=== PATIENT | male | born 1965 | race Caucasian/White ===

== ENCOUNTER 2019-02-13 10:23 | Outpatient (CLI) | payer OTHER, SELFPAY ==
--- NOTE | 2019-02-13 10:21 | DI.RAD_ITS ---
SYMPTOM/DIAGNOSIS: SHOULDER PAIN LEFT SHOULDER: There is spurring at the AC joint, particularly inferiorly. There is also some spurring at the greater and lesser tuberosities as well as rim of the glenoid. Glenohumeral joint space is well maintained. The humeral head is normally positioned. No tendon or joint space calcifications are seen. IMPRESSION: Degenerative changes of the AC joint and glenohumeral joint.
== END 2019-02-13 10:43 ==
PROVIDERS: Visit Provider Orthopaedic Surgery
DX: M25.512 Pain in left shoulder (principal); M19.012 Primary osteoarthritis, left shoulder
CPT/HCPCS: 73030

== ENCOUNTER 2022-08-10 23:06 | Emergency (ER) | payer OTHER, SELFPAY ==
[2022-08-10 23:11] VITALS: BP 131/79; PULSE 70; RESP 16; TEMP 36.5; O2SAT 98
--- NOTE | 2022-08-10 23:15 | DI.CT_ITS ---
Exam(s) CT ABDOMEN PELVIS W EXAM: CT ABDOMEN PELVIS W CLINICAL HISTORY: left inguinal hernia, r/o stangulation TECHNIQUE: COMPARISON: No exams were available for comparison FINDINGS: CT examination of the abdomen and pelvis was performed with bolus infusion of 100 cc of Omnipaque 350 . Images obtained through the lung bases are unremarkable. The liver appears normal with no evidence of a focal mass. Spleen is unremarkable in appearance.. Gallbladder and bile ducts areunremarkable. Pancreas is unremarkable in appearance. Adrenals appear normal bilaterally. Kidneys appear normal except for an apparent 4 cm left upper pole renal cyst with no evidence of peterson l mass, hydronephrosis, or nephrolithiasis. Unremarkable bladder. There is no evidence of abdominal or pelvic adenopathy. Abdominal aorta is of normal diameter and no abnormality is seen involving major visceral branches.. Appendix is normal. No evidence diverticulitis or bowel obstruction. There is a large left inguinal hernia which contains portion of the sigmoid colon and associated fat, no evidence of obstruction or strangulation period. Impression: No evidence of acute intra-abdominal process. Large left inguinal hernia containing portion of the sigmoid colon without evidence of complication. RADIATION DOSE DELIVERED: Total DLP Total DLP DATA REPOSITORY: All CT scans at this facility are submitted to the National Radiology Data Registry (NRDR) Dose Index Registry (DIR) with the [employer] (A[employer]). RADIATION OPTIMIZATION: All CT scans at this facility use at least one of these dose optimization te chniques: automated exposure control; mA and/or kV adjustment per patient size (includes targeted exa ms where dose is matched to clinical indication); or iterative reconstruction.
--- NOTE | 2022-08-10 23:22 | ED.GENADUL_ITS ---
Discharge Plan Disposition Patient Disposition: Home Condition: Good Discharge Details Clinical Impression: Left inguinal hernia Primary Care Provider: Unknown,Unknown ED Provider: Danny Newell Home Meds and New Rx's Prescriptions: New docusate sodium [Colace] 100 mg capsule 100 mg PO BID Qty: 120 0RF No Action ibuprofen 200 mg tablet 600 mg PO TID-QID PRN albuterol sulfate 90 mcg/actuation HFA aerosol inhaler 2 puff inhalation Q6H PRN Spiriva with HandiHaler 18 mcg capsule, w/inhalation device 1 cap inhalation DAILY Rx Instructions: puncture 1 cap using device; one dose = 2 inhalations fluticasone propionate [Flovent HFA] 220 mcg/actuation HFA aerosol inhaler 2 puff inhalation BID cetirizine [Allergy Relief (cetirizine)] 10 mg tablet 10 mg PO DAILY PRN levalbuterol tartrate [Xopenex HFA] 45 mcg/actuation HFA aerosol inhaler 2 inh inhalation Q6H atorvastatin 40 mg tablet 40 mg PO DAILY Discharge Instructions Instructions: Inguinal Hernia (ED) Additional Instructions: At this time your hernia is. Do not obstructed. There is no evidence of such strangulation. No signs of dying bowel. You do have some constipation and as this transitions to your hernia this is definitely likely worsening your pain. Please keep your stool soft by drinking plenty of fluids and taking the stool softener Colace that we have prescribed. If you notice any worsening of your symptoms, or any new symptoms such as vomiting, diarrhea, fever, chills, shortness of breath, chest pain, numbness, weakness, or fainting , please return immediately to the emergency department for reevaluation. Please follow up with your primary care provider as soon as possible for reassessment and reevaluation. As always, it was a pleasure participating in your medical care today. Medical Decision Making This is a 56-year-old male with a past medical history of a left inguinal hernia scheduled for surgical repair, COPD, previous OR, high cholesterol, who is currently incarcerated, who presents today for left inguinal/groin pain. Patient states that for the last 2 to 3 days he has had mild to moderate pain in his left inguinal hernia location. He has noticed swelling and a bulge larger than normal in this region, as well as enlargement of his left scrotal sac. He admits to mild burning with urination. He admits to mild tingling over the suprapubic region. He denies any vomiting, diarrhea, fever or chills. He is not able to reduce the swelling. He has worsening of his pain with palpation and bearing down. No other complaints at this time. No other modifying factors. Physical exam demonstrates a bulge and swelling in the left inguinal and scrotal region. Scrotum is slightly reducible but definitely not completely. Notable tenderness in this area, unable to reduce the groin at all. Differential is highest for an incarcerated hernia, with potential less likely strangulation component. Suspect its more of an irritation component causing this however with the increase in size he certainly could be transitioning to a strangulation component. We will get a CT scan, treat the patient's pain, rehydrate, monitor closely and reassess. 2:[address] scan shows a large left inguinal hernia containing herniated fat in the sigmoid colon, tracking down into the left hemiscrotum there is no evidence of associated bowel obstruction or strangulation. There is evidence of constipation. Laboratory work-up shows no white count, bandemia, left shift, lactate is normal. Patient feels well. Symptoms continue to be inconsistent with strangulation. Urinalysis negative. Patient stable. No clinical evidence of strangulation at this time or an acute surgical abdomen. Will give Colace for home use, recommend stool softener with any fluids. Discussed red flags which to return. I have extensively reviewed the treatment plan and discharge instructions with the patient. I have addressed all patient concerns at this time. The patient was made aware of what symptoms to monitor for that would warrant a return to the emergency department. Discussed the plan with the patient, they demonstrate verbal understanding and agreement with our assessment and plan at this time. The documentation in this chart was dictated using [employer] dictation software. Please excuse any dictation errors. FINDINGS: Lungs: Moderate emphysematous changes in the lung bases. Mild-moderate bronchiectasis in the lower lobes. Dependent atelectasis in the lower lobes. Heart: Heart size normal. Mediastinal space: The visualized distal esophagus is largely contracted without gross abnormality. Liver: Normal contour. There is a 4 mm probable cyst in the central liver which does not require further assessment. Slight intrahepatic biliary ductal dilatation. Gallbladder and bile ducts: Normal. No calcified stones. No ductal dilation. Pancreas: Normal. No inflammatory changes or ductal dilation. Spleen: Normal. No splenomegaly. Adrenal glands: Normal. No adrenal mass. Kidneys and ureters: No acute abnormalities. No hydronephrosis or hydroureter. No urinary tract stones are identified. There are bilateral renal cortical lesions demonstrating low density values and circumscribed margins favoring simple renal cysts for which no further imaging evaluation is required. Stomach and bowel: The stomach is unremarkable. The small bowel is nondilated with no gross abnormality. Moderate stool throughout the colon suggesting constipation. The sigmoid colon extends into the left inguinal hernia with no bowel wall thickening to suggest strangulation/ischemia. No evidence of colonic obstruction. Appendix: The appendix is normal in caliber and demonstrates no evidence of appendicitis. Intraperitoneal space: No free fluid or air. Vasculature: Moderate atherosclerotic aortoiliac calcification without aneurysm. Lymph nodes: No adenopathy. Urinary bladder: The urinary bladder is moderately distended but otherwise unremarkable. Reproductive: Unremarkable as visualized. Bones/joints: No acute osseous abnormalities. Moderate disc degenerative changes L5-S1 with 4 mm degenerative retrolisthesis. Soft tissues: Large left inguinal hernia containing herniated fat and vessels as well as a fairly long segment of sigmoid colon, extending off the lower edge of the scan range into the left hemiscrotum. There are no changes of strangulation or bowel obstruction. IMPRESSION: 1. Large left inguinal hernia containing herniated fat, vessels, and sigmoid colon, tracking down into the left hemiscrotum off the lower edge of the scan. There is no evidence of associated bowel obstruction or strangulation. 2. Moderate colonic stool suggesting an element of constipation. 3. Additional nonemergent findings detailed above. Thank you for allowing us to participate in the care of your patient. Dictated and Authenticated by: Ezio Bazzi MD 08/11/2022 1:26 AM Eastern Time ([place] Sign Out No HPI General Date/Time Provider Initiated Documentation: 08/10/22 23:08 . HPI Narrative: This is a 56-year-old male with a past medical history of a left inguinal hernia scheduled for surgical repair, COPD, previous OR, high cholesterol, who is currently incarcerated, who presents today for left inguinal/groin pain. Patient states that for the last 2 to 3 days he has had mild to moderate pain in his left inguinal hernia location. He has noticed swelling and a bulge larger than normal in this region, as well as enlargement of his left scrotal sac. He admits to mild burning with urination. He admits to mild tingling over the suprapubic region. He denies any vomiting, diarrhea, fever or chills. He is not able to reduce the swelling. He has worsening of his pain with palpation and bearing down. No other complaints at this time. No other modifying factors. Related Data Home Medications Medication Instructions Recorded Confirmed ibuprofen 200 mg tablet 600 mg PO TID-QID PRN 02/13/19 08/10/22 cetirizine 10 mg tablet (Allergy 10 mg PO DAILY PRN 07/06/22 08/10/22 Relief (cetirizine)) fluticasone propionate 220 2 puff inhalation BID 07/06/22 08/10/22 mcg/actuation HFA aerosol inhaler (Flovent HFA) levalbuterol tartrate 45 2 inh inhalation Q6H 07/06/22 08/10/22 mcg/actuation aerosol inhaler (Xopenex HFA) tiotropium bromide 18 mcg capsule 1 cap inhalation DAILY 07/06/22 08/10/22 with inhalation device (Spiriva with HandiHaler) albuterol sulfate 90 mcg/actuation 2 puff inhalation Q6H PRN 07/18/22 08/10/22 aerosol inhaler atorvastatin 40 mg tablet 40 mg PO DAILY 08/10/22 08/10/22 docusate sodium 100 mg capsule 100 mg PO BID #120 caps 08/11/22 (Colace) Previous Rx's Medication Instructions Recorded docusate sodium 100 mg capsule 100 mg PO BID #120 caps 08/11/22 (Colace) Allergies Allergy/AdvReac Type Severity Reaction Status Date / Time azithromycin Allergy Severe Anaphylaxsi Verified 08/10/22 23:45 s erythromycin base Allergy Severe Anaphylaxsi Verified 08/10/22 23:45 s trazodone Allergy Verified 08/10/22 23:45 hydroxyzine AdvReac Unverified 08/10/22 23:46 sulfa Allergy Severe Anaphylaxsi Uncoded 08/10/22 23:45 s Seafood Allergy Unknown Uncoded 08/10/22 23:45 Review of Systems All systems reviewed & are unremarkable except as noted in HPI and below PFSH All Active Problems (Updated 08/11/22 @ 01:32 by Danny Newell DO) Status post myocardial infarction (Acute) COPD (chronic obstructive pulmonary disease) (Chronic) Left inguinal hernia (Acute) Medical History Chronic pain Social History Smoking/Tobacco Use Status: Current every day Tobacco Type: cigarettes Smoking risk assessment performed?: Yes Alcohol Intake: never Drug use: Daily Substance use type: crack/cocaine Details: has been clean for 80 days. Exam Narrative Exam Narrative: 1.Const: Well-nourished, Well-developed, appearing stated age 2.Eyes: PERRL, no conjunctival injection, and symmetrical lids. 3.ENT: Atraumatic external nose and ears. Moist MM. Neck: Symmetric, trachea midline, No thyromegaly. 4.CVS: +S1/S2, No murmurs or gallops. Peripheral pulses 2+ and equal in all extremities. Brisk capillary refill in all extremities. 5.RESP: Unlabored respiratory effort. Clear to auscultation bilaterally. No wheezes rales or rhonchi 6.GI: Soft, Nontender/Nondistended, No hepatosplenomegaly. No guarding or rebound. Exam demonstrates swelling and bulging over the left inguinal region and left scrotum. Tenderness in this area. No redness or warmth. I am slightly able to reduce the scrotal component, but I am unable to reduce the inguinal component. No right-sided testicular tenderness. No right inguinal swelling. No abdominal tenderness. No penile tenderness. 7.MSK: Normocephalic/Atraumatic, Extremities w/o deformity or ttp No cyanosis or clubbing, Normal movement of all extremities 8.Skin: Warm, Dry. No rashes or lesions. 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 Sensation grossly intact, no focal neurologic deficits. 10.Psych: (AAO) x3. Appropriate mood and affect
[2022-08-10] MEDS: Normal Saline 500 ML IV (23:30)
[2022-08-10] MEDS: Breeza Beverage 473 ML BTL PO ×2 (23:32→23:33)
[2022-08-10] MEDS: Gastrografin 120 ML BTL IVP (23:32)
[2022-08-10 23:35] LABS: Source Nasal/Nares
[2022-08-10] MEDS: MORPHine 4 MG/ML SYR IVP (23:35)
[2022-08-10 23:37] LABS: Lactate 0.8 mmol/L (0.6-1.4)
[2022-08-10 23:42] LABS: Abs Immature Grans 0.06 10^3/uL (0.0-0.06); Absolute Eosinophil Count 0.14 10^3/uL (0.0-0.7); Absolute Lymphocyte Count 2.81 10^3/uL (1.2-3.4); Absolute Neutrophil Count 6.08 10^3/uL (1.2-6.7); Eosinophils % 1.4; HCT 39.7 % (40.0-50.0); HGB 13.4 g/dL (13.5-17.5); Immature Grans % 0.6; Lymphocytes % 28.4; MCH 31.5 pg (27.0-33.0); MCHC 33.8 % (32.0-36.0); MCV 93 fL (80-95); MPV 10.1 fL (8.0-11.0); Monocytes % 7.1; Neutrophils % 61.5; Platelet Count 238 10^3/uL (130-400); RBC 4.25 10^6/uL (4.36-5.78); RDW 13.1 % (11.8-14.1); RDW-SD 44.5 fL; WBC 9.89 10^3/uL (4.4-10.8)
[2022-08-11] VITALS (9 sets, daily range): BP systolic 125–130; BP diastolic 82–97; PULSE 61–74; RESP 15–21; TEMP 36.5; O2SAT 95–97
[2022-08-11] LABS: ALT 36 U/L (16-63); AST 18 U/L (15-37); Alkaline Phosphatase 89 U/L (46-116); Anion Gap 7.6 mmol/L (3-11); BUN 27 mg/dL (7-18); Bilirubin, Total 0.5 mg/dL (0.2-1.0); CO2 28.4 mmol/L (21.0-32.0); Chloride 106 mmol/L (98-107); Estimated GFR 88.88 (mL/min/1.73m2); Glucose 86 mg/dL (74-106); Potassium 3.9 mmol/L (3.5-5.1); Sodium 142 mmol/L (136-145); Total Protein 7.6 g/dL (6.4-8.2)
[2022-08-11 00:06] LABS: COVID-19 PCR Negative (Negative)
[2022-08-11] MEDS: Omnipaque 350 MG/ML 100 ML BTL IJ (01:03)
[2022-08-11] MEDS: Normal Saline - Diluent 50 ML VIAL IJ (01:03)
--- NOTE | 2022-08-11 01:27 | DI.VRAD_ITS ---
PROCEDURE INFORMATION: Exam: CT Abdomen And Pelvis With Contrast Exam date and time: 08/11/2022 12:50 AM Age: 56 years old Clinical indication: Abdominal pain; Patient HX: Left inguinal hernia, R/O stangulation TECHNIQUE: Imaging protocol: Computed tomography of the abdomen and pelvis with contrast. COMPARISON: No relevant prior studies available. FINDINGS: Lungs: Moderate emphysematous changes in the lung bases. Mild-moderate bronchiectasis in the lower lobes. Dependent atelectasis in the lower lobes. Heart: Heart size normal. Mediastinal space: The visualized distal esophagus is largely contracted without gross abnormality. Liver: Normal contour. There is a 4 mm probable cyst in the central liver which does not require further assessment. Slight intrahepatic biliary ductal dilatation. Gallbladder and bile ducts: Normal. No calcified stones. No ductal dilation. Pancreas: Normal. No inflammatory changes or ductal dilation. Spleen: Normal. No splenomegaly. Adrenal glands: Normal. No adrenal mass. Kidneys and ureters: No acute abnormalities. No hydronephrosis or hydroureter. No urinary tract stones are identified. There are bilateral renal cortical lesions demonstrating low density values and circumscribed margins favoring simple renal cysts for which no further imaging evaluation is required. Stomach and bowel: The stomach is unremarkable. The small bowel is nondilated with no gross abnormality. Moderate stool throughout the colon suggesting constipation. The sigmoid colon extends into the left inguinal hernia with no bowel wall thickening to suggest strangulation/ischemia. No evidence of colonic obstruction. Appendix: The appendix is normal in caliber and demonstrates no evidence of appendicitis. Intraperitoneal space: No free fluid or air. Vasculature: Moderate atherosclerotic aortoiliac calcification without aneurysm. Lymph nodes: No adenopathy. Urinary bladder: The urinary bladder is moderately distended but otherwise unremarkable. Reproductive: Unremarkable as visualized. Bones/joints: No acute osseous abnormalities. Moderate disc degenerative changes L5-S1 with 4 mm degenerative retrolisthesis. Soft tissues: Large left inguinal hernia containing herniated fat and vessels as well as a fairly long segment of sigmoid colon, extending off the lower edge of the scan range into the left hemiscrotum. There are no changes of strangulation or bowel obstruction. IMPRESSION: 1. Large left inguinal hernia containing herniated fat, vessels, and sigmoid colon, tracking down into the left hemiscrotum off the lower edge of the scan. There is no evidence of associated bowel obstruction or strangulation. 2. Moderate colonic stool suggesting an element of constipation. 3. Additional nonemergent findings detailed above. Dictated and Authenticated by: Ezio Bazzi MD. Ordering:CACHORRO Delgado MD
[2022-08-11 01:49] LABS: Bilirubin Negative (Negative); Blood Negative (Negative); Clarity Clear (Clear); Glucose Negative (Negative); Ketones Negative (Negative); Leukocyte Esterase Negative (Negative); Nitrite Negative (Negative); Specific Gravity 1.015 (1.005-1.025); Urobilinogen 0.2 EU/dL (Up TO 0.2)
== END 2022-08-11 02:16 | disposition home or self-care (01) ==
PROVIDERS: Emergency Provider Student in an Organized Health Care Education/Training Program
DX: K40.90 Unilateral inguinal hernia, without obstruction or gangrene, not specified as recurrent (principal)
CPT/HCPCS: 36415; 80053; 87635; 96361; 96374; 99284; 74177; 81003; 83605; 85025; J2270; J3490

== ENCOUNTER 2023-09-15 07:50 | Day surgery (SDC) | payer OTHER, SELFPAY ==
--- NOTE | 2023-09-14 20:02 | W.PREOPHP ---
Assessment and Plan Assessment and plan (1) Left inguinal hernia: Status: Acute Assessment and plan: We reviewed the plan for an open inguinal hernia repair with implantation of a permanent mesh. I think he has a good understanding of the risks of the operation, which include chronic pain, injury to the spermatic cord structures or testicle, and possibility of recurrence. History of Present Illness History of Present Illness Chief Complaint: Left inguinal hernia Narrative: He is here for a left-sided inguinal scrotal hernia. He was actually seen here last year, and attempts were made to schedule elective repair. However, due to some concerns about perioperative risk, he elected not to proceed. He does complain of pain on his left flank down into his left scrotum. The hernia is growing a little bit in size, and it does require reduction to assist with bowel movements. 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 Since his last visit, he did experience an infection in the right elbow. It was successfully treated with antibiotics. PFS All Active Problems Left inguinal hernia (Acute) COPD (chronic obstructive pulmonary disease) (Chronic) Status post myocardial infarction (Acute) Medical History Emphysema/COPD Chronic pain Surgical History Inguinal hernia of left side without obstruction or gangrene (~08/2023) Social History Smoking/Tobacco Use Status: Former Tobacco Use Smoking risk assessment performed?: Yes Alcohol Intake: never Drug use: Daily Substance use type: crack/cocaine Details: per [facility] (Per [facility] has been with them a few months presumed April 2023 last use) Housing: other Additional Social history: [facility] inmate Meds Allergies and Home Medications Allergies Allergy/AdvReac Type Severity Reaction Status Date / Time azithromycin Allergy Severe Anaphylaxsi Verified 09/15/23 08:09 s erythromycin base Allergy Severe Anaphylaxsi Verified 09/15/23 08:09 s trazodone Allergy Verified 09/15/23 08:09 hydroxyzine AdvReac Unverified 09/15/23 08:09 sulfa Allergy Severe Anaphylaxsi Uncoded 09/15/23 08:09 s Seafood Allergy Unknown Uncoded 09/15/23 08:09 Home Medications Medication Instructions Recorded Confirmed Type cetirizine 10 mg tablet (Allergy 10 mg PO DAILY PRN 07/06/22 09/15/23 History Relief (cetirizine)) albuterol sulfate 90 mcg/actuation 2 puff inhalation Q6H PRN 07/18/22 09/15/23 History aerosol inhaler atorvastatin 40 mg tablet 40 mg PO DAILY 08/10/22 09/15/23 History docusate sodium 100 mg capsule 100 mg PO BID #120 caps 08/11/22 09/15/23 Rx (Colace) bisacodyl 5 mg tablet,delayed 5 mg PO ONCE 07/26/23 09/15/23 History release (Dulcolax (bisacodyl)) ibuprofen 200 mg tablet 400 mg PO BID 07/26/23 09/15/23 History ipratropium bromide 17 1 puff inhalation ONCE 07/26/23 09/15/23 History mcg/actuation HFA aerosol inhaler (Atrovent HFA) escitalopram oxalate 10 mg tablet 10 mg PO DAILY 09/05/23 09/15/23 History doxycycline hyclate 100 mg tablet mg 09/15/23 History Exam Const General: cooperative, healthy appearing and not in acute distress Neck Neck: normal visual inspection, no lymphadenopathy and supple Thyroid: thyroid normal Resp Effort & Inspection: normal respiratory effort Auscultation: clear to auscultation bilaterally Cardio Jugular venous pressure: no JVD Rate: regular rate Rhythm: regular rhythm Heart Sounds: S1 normal and S2 normal GI Inspection: normal to inspection Palpation: soft, no guarding, hernia (Left inguinal) and nontender Percussion: normal to percussion Auscultation: normal bowel sounds Other: There is a large left inguinoscrotal hernia that is partially reducible Neuro General: patient alert, patient awake and patient oriented x3 Psych Appearance: grossly normal
--- NOTE | 2023-09-14 20:04 | PDOC.DSDIS_ITS ---
Date of service: 09/15/23 Time of Service: 12:18 Discharge Plan Disposition Patient Disposition: Home Condition: Good Discharge Details Reason For Visit: Left inguinal hernia repair Attending Provider: Neno Thurman Primary Care Provider: Unknown,Unknown Home Meds and New Rx's Prescriptions: New tramadol 50 mg tablet 50 mg PO Q8H PRNQty: 12 0RF Rx Instructions: Take 1 tablet by mouth up to every 8 hours if needed for severe pain. Continued Atrovent HFA 17 mcg/actuation HFA aerosol inhaler 1 puff inhalation ONCE bisacodyl [Dulcolax (bisacodyl)] 5 mg tablet,delayed release (DR/EC) 5 mg PO ONCE ibuprofen 200 mg tablet 400 mg PO BID albuterol sulfate 90 mcg/actuation HFA aerosol inhaler 2 puff inhalation Q6H PRN cetirizine [Allergy Relief (cetirizine)] 10 mg tablet 10 mg PO DAILY PRN escitalopram oxalate 10 mg tablet 10 mg PO DAILY Patient Comments: TAKE ONE TABLET BY MOUTH EVERY DAY doxycycline hyclate 100 mg tablet Patient Comments: TAKE ONE TABLET BY MOUTH TWICE A DAY FOR 5 DAYS atorvastatin 40 mg tablet 40 mg PO DAILY docusate sodium [Colace] 100 mg capsule 100 mg PO BID Qty: 120 0RF Discharge Instructions Instructions: Inguinal Hernia Repair (GEN) Additional Instructions: Maxx, we were able to repair your hernia today as we planned. Like we talked about, and as I am sure you already knew, your hernia was quite large. However, I was was able to reduce all of its contents back to their normal positioning and repair all of the site using the mesh implants that we talked about. The surrounding tissue is a little bit weak, but I tried my best to fix this all in place to give you a durable repair. Given the size of this hernia, recurrence is certainly a possibility, but I am optimistic that this repair will serve you well. Please do not lift anything more than 5 pounds until I see you in the office. I would like you to be up and moving around every day. Expect to have a fair amount of bruising all through the area, and this may extend down into your scrotum. Given the size of the hernia before we fixed it, I would also expect some swelling and fluid accumulation in and around your scrotum. Do not be alarmed if that happens. Try your best to keep it elevated when you are not walking around. Please let the [facility] know if you notice any bright red skin changes, or any discharge from the incision. 1. Resume all of your medications. 2. Use heating pads and ice packs as needed for pain. I usually recommend 1 of these treatments for about 15 to 30 minutes, or until you notice improvement. This can be repeated several times throughout the day if needed. 3. Okay to use tylenol and ibuprofen over the counter as needed for pain. Use tramadol as needed for more severe pain. Tramadol should be prescribed as 50 mg by mouth up to every 8 hours if needed for severe pain. I recommend this for 3 days. 4. Leave bandage in place for 24 hours, then remove. 5. Shower with warm soapy water. Pat dry. Dressed with a sterile bandage. Repeat this every day until I see you in the office. 6. No soaking or tub baths until I see you in the office. 7. No lifting anything more than 5 pounds until I see you in the office. 8. Call the office (or go directly to the emergency room after hours) if you notice any of the following: Develop chills (warm to touch), or if you have a thermometer and your temperature is above 101 Difficulty breathing or difficultly swallowing Persistent vomiting Any bleeding ? exceeding one tablespoon 9. Call your physician if the site where your intravenous was started becomes red, swollen, painful, and warm to touch. Activity:: no heavy lifting Remove Dressings/Wound Care:: 24 hours Shower/Bathe:: 24 hours Diet:: As Tolerated Discharge Orders Discharge Orders: Discharge Order (Routine); Ordered 09/14/23 Ordered By: Neno Thurman DS: Diagnosis Discharge Diagnosis (1) Left inguinal hernia: Status: Acute Asessment and Plan: Outpatient follow-up in routine fashion.
--- NOTE | 2023-09-14 20:09 | W.PM.OP ---
Date of service: 09/15/23 Time of Service: 12:13 Operative Note Operative Note DATE OF PROCEDURE: 09/15/23 PRE-OP DIAGNOSIS: Left inguinal hernia POST-OP DIAGNOSIS: other (Left-sided direct and indirect inguinal hernias) PROCEDURE: Open left inguinal hernia repair with mesh SURGEON: Neno Thurman MACHINE STRAP BUCKLER: Cassi Robbins ANESTHESIA TYPE: Local By Surgeon, General LMA/ETT and Other (Tap block) Refer to Anesthesia Record ESTIMATED BLOOD LOSS: 50 COMPLICATIONS: None Patient was transported to: PACU Patient's condition: stable Implants: Bard PerFix light extra-large plug and patch Indications: Maxx is a 57-year-old male with a longstanding inguinoscrotal hernia. It has been increasing in size and become more painful. Findings: Left inguinal hernia with both direct and indirect components Procedure Description: I began by confirming the correct site with the patient. Next, after induction of general anesthesia the left groin was anesthetized using an ultrasound-guided tap block by the anesthesia specialty. The surgical site was then prepped and draped in the usual fashion. I began by making an oblique incision over the left inguinal region. I dissected down through the skin to the deep fascia. The external fascial aponeurosis was extremely attenuated because of the size of the hernia. It was carefully opened to the external ring which was nearly obliterated already. I then carefully identified the ilioinguinal nerve and sharply divided it. Once this was complete, I bluntly dissected the shelving edge of the inguinal ligament down towards the pubic tubercle. As the dissection continued down toward the pubic bone, it was clear that the floor of the inguinal canal was also quite lax. Although majority of this hernia is an indirect hernia throughout the canal, the floor of the canal is certainly patulous and without good integrity. At the pubic tubercle, I encircled all cord structures with a Aem drain. Next, I began tediously dissecting the specific cord structures. Great care was taken to spare the vas deferens and the blood supply to the testicle. Next, I isolated the hernia sac from the other inguinal structures. I reduced it back to its normal anatomic position. I then used a extra-large mesh plug to obliterate the defect at the internal ring. I fixed in place with interrupted Prolene stitches. Next, I buttressed the posterior floor of the inguinal canal with a large mesh patch. I started by fixing it to the pubic tubercle. Using a double-armed 2-0 Prolene suture, I have fixed the mesh to the pubic tubercle as well as the conjoined tendon. The stitch was run cephalad and laterally affixing it to the internal oblique muscle and aponeurosis. Along the inferior margin, the stitch was run along the shelving edge of the inguinal ligament . The mesh was trimmed to fit around the cord structures without any tension here. It was also pexied down along the internal oblique in an effort to buttress the internal ring repair. Once this was complete, I irrigated the surgical field. It appeared hemostatic. I then closed the anterior portion of the fascia to reconstruct the front wall of the inguinal canal. I did this with running Vicryl stitches. Once again, I irrigated the surgical field and inspected for hemostasis. Finally, I approximated the superficial fascia and the deep layers of the skin with absorbable suture. Skin was closed with running subcuticular stitches. Bandages were applied. Appropriate positioning of the left testicle within the scrotum was confirmed after bandages were applied. The patient was then allowed to wake up from anesthesia and transferred to the recovery unit
[2023-09-15] VITALS (8 sets, daily range): BP systolic 85–142; BP diastolic 53–76; PULSE 46–62; RESP 10–18; TEMP 36.3–36.6; O2SAT 94–99; BMI 26.4
[2023-09-15] MEDS: Acetaminophen 500 MG TAB 1000 MG PO (08:39)
[2023-09-15] MEDS: Celecoxib 200 MG CAP PO (08:39)
[2023-09-15] MEDS: Gabapentin 300 MG CAP 600 MG PO (08:39)
[2023-09-15] MEDS: Lactated Ringers 1,000 ML 80 ML IV (08:40)
[2023-09-15] MEDS: ceFAZolin 2 GM/50 ML BAG IVPB (10:00)
--- NOTE | 2023-09-15 10:34 | ANES.NERVE_ITS ---
Nerve Block Single Injection Procedure Date and Time Date Performed: 09/15/23 Procedure Start: 10:15 Location Where Procedure Performed Procedure Location: Operating Room Procedure Stop: 10:20 Reason Performed: Postoperative Analgesia Requesting Provider: Neno Thurman Timeout Performed Timeout Performed: Yes Monitoring Used ECG, Blood Pressure, SpO2 and See EMR for corresponding vital signs Sterility Sterility: Hand Hygiene, Surgical Cap, Surgical Mask, Sterile Gloves and Chlorh exidine Sedation Given During Procedure Sedation Given (Indicate Dose Given): No Sedation given Patient Mental Status Patient Mental Status: Performed under general anesthesia Nerve Block 1st Nerve Block: Laterality: Left Block Type: TAP Unilateral Ultrasound Image Saved?: Yes Needle / Catheter Used: 100mm SonoPlex II Local Anesthetic Bolus (Indicate Dose Given): None, Injected in 3-5ml increments after negative blood aspiration, Bupivacaine 0.25% Dose:: 20mL and Exparel Dose:: 10mL Additives (Indicate Dose Given): None Ultrasound: Sterile probe cover and gel used Nerve Stimulator: Not Used Paresthesia: None Procedure Tolerated: No Complications Procedure Outcome: Successful Performed By: Rosalva Hinojosa
[2023-09-15] MEDS: traMADol 50 MG TAB PO (13:26)
--- NOTE | 2023-09-15 14:35 | W.ANESPRE ---
General Info Date of Service Date Performed: 09/15/23 Height: 6 ft Weight: 88.451 kg Body Mass Index (BMI): 26.4 Surgical Procedure: Operation Date: 09/15/23 09:40 Proposed Procedure Side Surgeon p Herniorrhaphy Inguinal w/Mesh Left Neno Thurman MD Actual Procedure Side Surgeon p Herniorrhaphy Inguinal w/Mesh Left Neno Thurman MD Pre-Op Diagnosis Post-Op Diagnosis Left inguinal hernia repair Left inguinal hernia repair Meds Allergies and Home Medications Allergies Allergy/AdvReac Type Severity Reaction Status Date / Time azithromycin Allergy Severe Anaphylaxsi Verified 09/15/23 08:09 s erythromycin base Allergy Severe Anaphylaxsi Verified 09/15/23 08:09 s trazodone Allergy Verified 09/15/23 08:09 hydroxyzine AdvReac Unverified 09/15/23 08:09 sulfa Allergy Severe Anaphylaxsi Uncoded 09/15/23 08:09 s Seafood Allergy Unknown Uncoded 09/15/23 08:09 Home Medication Medication Instructions Recorded cetirizine 10 mg tablet (Allergy 10 mg PO DAILY PRN 07/06/22 Relief (cetirizine)) albuterol sulfate 90 mcg/actuation 2 puff inhalation Q6H PRN 07/18/22 aerosol inhaler atorvastatin 40 mg tablet 40 mg PO DAILY 08/10/22 docusate sodium 100 mg capsule 100 mg PO BID #120 caps 08/11/22 (Colace) bisacodyl 5 mg tablet,delayed 5 mg PO ONCE 07/26/23 release (Dulcolax (bisacodyl)) ibuprofen 200 mg tablet 400 mg PO BID 07/26/23 ipratropium bromide 17 1 puff inhalation ONCE 07/26/23 mcg/actuation HFA aerosol inhaler (Atrovent HFA) escitalopram oxalate 10 mg tablet 10 mg PO DAILY 09/05/23 doxycycline hyclate 100 mg tablet mg 09/15/23 tramadol 50 mg tablet 50 mg PO Q8H PRN #12 tabs 09/15/23 Current Visit Medications: Current Medications Generic Name Dose Route Start Last Admin Trade Name Freq PRN Reason Stop Dose Admin Acetaminophen 1,000 mg 09/15/23 06:00 09/15/23 08:39 Acetaminophen 500 Mg Tab PO 09/15/23 23:59 1,000 mg PREOP ALEX Administration Celecoxib 200 mg 09/15/23 06:00 09/15/23 08:39 Celecoxib 200 Mg Cap PO 09/15/23 23:59 200 mg PREOP ALEX Administration Gabapentin 600 mg 09/15/23 06:00 09/15/23 08:39 Gabapentin 300 Mg Cap PO 09/15/23 23:59 600 mg PREOP ALEX Administration Ringer's Solution 1,000 mls @ 80 mls/hr 09/15/23 06:00 09/15/23 13:07 IV 09/15/23 23:59 80 mls/hr INFUSION ALEX Infusion Cefazolin Sodium/Dextrose 2 gm in 50 mls @ 100 mls/hr 09/15/23 06:00 09/15/23 10:15 Ancef Duplex IVPB 09/15/23 23:59 Infused PREOP ALEX Infusion IV Miscellaneous Supplies 1 each 09/15/23 06:00 Iv Access IV 09/15/23 23:59 DIRECTED ALEX Morphine Sulfate 2 mg 09/14/23 20:08 Morphine 4 Mg/Ml Syr IVP 10/14/23 20:07 Q1H PRN PRN Sodium Chloride 0 ml 09/15/23 06:00 Normal Saline Flush 10 Ml Syr IV 09/15/23 23:59 PRN PRN Sodium Chloride 0 ml 09/15/23 06:00 Normal Saline 10 Ml Vial IJ 09/15/23 23:59 DIRECTED PRN Sterile Water 0 ml 09/15/23 06:00 Water,Injection,Sterile 10 Ml Vial IJ 09/15/23 23:59 DIRECTED PRN Tramadol HCl 50 mg 09/14/23 20:08 09/15/23 13:26 Tramadol 50 Mg Tab PO 10/14/23 20:07 50 mg Q6H PRN PRN Administration Pain PFSH Active Problems Active Problems: Problem Status Onset Code Left inguinal hernia K40.90 COPD (chronic obstructive pulmonary disease) J44.9 Status post myocardial infarction I25.2 Medical History Medical History Emphysema/COPD Chronic pain Medical History Comments:: per [facility] Aleman Surgical History Surgical History Inguinal hernia of left side without obstruction or gangrene (~08/2023) Tobacco Smoking/Tobacco Use Status: Former Tobacco Use Alcohol Alcohol Intake: never Substance Use Substance use: Daily Substance use type: crack/cocaine Details: per [facility] (Per [facility] has been with them a few months presumed April 2023 last use), patient confirms Vital Signs and Lab Results Vital Signs Most Recent Vital Signs in EMR: Most Recent Vital Signs Temp Pulse Resp BP Pulse Ox 36.3 C L 61 16 103/63 99 09/15/23 13:56 09/15/23 13:56 09/15/23 13:56 09/15/23 13:56 09/15/23 13:56 Lab Results Blood Type / Crossmatch: No Data to Display Complete Blood Count: No Data to Display Complete Metabolic Panel: No Data to Display Liver Function Panel: No Data to Display Coagulation Panel: No Data to Display Cardiac Panel: No Data to Display Arterial Blood Gas: No Data to Display Venous Blood Gas: No Data to Display Pancreas Panel: No Data to Display Thyroid Panel: No Data to Display Infectious Disease: No Data to Display Blood Cultures: No Data to Display Toxicology Panel: No Data to Display Imaging and Studies Imaging and Studies Study information below may be from another EMR and interpreted by another provider. Please see original notes in EMR for more complete details. Echocardiogram Summary: 08/12/2022: EXAM: Comprehensive 2D, Doppler, and color-flow Echocardiogram Patient Location: Out-Patient Disease Management Nurse: Leandra Nolan RDCS (AE) Other Information Study Quality: Adequate. Technically limited study due to inability to position patient exam done supine. Conclusion Normal left ventricular wall thickness and chamber size. Estimated ejection fraction is 60%. Wall motion is normal Normal right ventricular size and systolic function Both atria are normal in size There is no structural or hemodynamically significant valvular disease Normal estimated right ventricular systolic pressure 14 mmHg Anesthesia Assessment and Plan Anesthesia History Personal History: No History of Anesthesia Complications Family History: No Family History of Anesthesia Complications Exercise Tolerance Exercise Tolerance: Metabolic Equivalents>4 Pertinent Negatives Pertinent Negatives: No Symptoms of GERD, No Major Cardiovascular Symptoms or Complaints and No Major Pulmonary Symptoms or Complaints Cardiac & Pulmonary Exam Cardiac Exam: Normal S1/S2 Heart Sounds Pulmonary Exam: Clear Bilateral Breath Sounds Implantable Cardiac Device Does patient have a Pacemaker or an ICD?: No Airway Exam Known Difficult Airway: No Mallampati Class: 2 Mouth Opening: Normal (> 3cm) Thyromental Distance: Greater than 3 cm Neck Range of Motion: Full ROM Neck Circumference: Normal Teeth Condition: Normal Dentition ASA Classification ASA Score: ASA 2 Emergency Case?: No NPO Status NPO Status: NPO Clears >2 hours, Solids >8 hours Anesthesia Plan Resuscitation Status: Full Code Anesthesia Technique: General Anesthesia Airway Planned: LMA Pain Management: Surgeon and patient request nerve block Monitors Used: Standard Monitors
== END 2023-09-15 14:24 | disposition home or self-care (01) ==
LOC: SUR 07:51
PROVIDERS: Visit Provider Surgery
PROC: (CPT 49505; principal; 2023-09-15 09:30)
DX: K40.90 Unilateral inguinal hernia, without obstruction or gangrene, not specified as recurrent (principal)
CPT/HCPCS: 49505; 76942; C1781; J0690; J1100; J2001; J2250; J2405; J2704; J3010

== ENCOUNTER 2024-02-24 16:38 | Emergency (ER) | payer OTHER, SELFPAY ==
[2024-02-24 16:45] VITALS: BP 132/63; PULSE 72; RESP 15; TEMP 36.7; O2SAT 97
[2024-02-24 16:48] VITALS: BP 119/75; PULSE 77; RESP 16; TEMP 36.3; O2SAT 99
[2024-02-24 17:45] VITALS: BP 119/75; PULSE 77; RESP 16; TEMP 36.3; O2SAT 99
--- NOTE | 2024-02-24 23:01 | ED.GENADUL_ITS ---
Discharge Plan Disposition Patient Disposition: Home Discharge Details Clinical Impression: Laceration of hand, left Primary Care Provider: None,None ED Provider: Lashonda Swenson Home Meds and New Rx's Prescriptions: Continued Atrovent HFA 17 mcg/actuation HFA aerosol inhaler 1 puff inhalation ONCE bisacodyl [Dulcolax (bisacodyl)] 5 mg tablet,delayed release (DR/EC) 5 mg PO ONCE ibuprofen 200 mg tablet 400 mg PO BID albuterol sulfate 90 mcg/actuation HFA aerosol inhaler 2 puff inhalation Q6H PRN cetirizine [Allergy Relief (cetirizine)] 10 mg tablet 10 mg PO DAILY PRN escitalopram oxalate 10 mg tablet 10 mg PO DAILY Patient Comments: TAKE ONE TABLET BY MOUTH EVERY DAY atorvastatin 40 mg tablet 40 mg PO DAILY docusate sodium [Colace] 100 mg capsule 100 mg PO BID Qty: 120 0RF Discharge Instructions Instructions: Laceration (ED) Additional Instructions: Suture removal in 12 to 14 days, these are horizontal mattress stitches need to be removed a specific way Change dressing daily and keep dry for 12 days, refrain from use of your hand as you are on the risk of pulling out your sutures and injuring her tendon if you are not cautious allow to air dry after 3 to 4 days is much as possible as this will help it heal Discharge Data Discharge Date/Time-TO BE ENTERED AT DEPARTURE: 02/24/24 17:55 HPI General Date/Time Provider Initiated Documentation: 02/24/24 17:25 . HPI Narrative: This 58-year-old gentleman with history of polysubstance abuse presents with laceration to right hand just prior to arrival. Tetanus reportedly up-to-date. Denies strength or sensation change. Related Data Home Medications Medication Instructions Recorded Confirmed cetirizine 10 mg tablet (Allergy 10 mg PO DAILY PRN 07/06/22 02/24/24 Relief (cetirizine)) albuterol sulfate 90 mcg/actuation 2 puff inhalation Q6H PRN 07/18/22 02/24/24 aerosol inhaler atorvastatin 40 mg tablet 40 mg PO DAILY 08/10/22 02/24/24 docusate sodium 100 mg capsule 100 mg PO BID #120 caps 08/11/22 02/24/24 (Colace) bisacodyl 5 mg tablet,delayed 5 mg PO ONCE 07/26/23 02/24/24 release (Dulcolax (bisacodyl)) ibuprofen 200 mg tablet 400 mg PO BID 07/26/23 02/24/24 ipratropium bromide 17 1 puff inhalation ONCE 07/26/23 02/24/24 mcg/actuation HFA aerosol inhaler (Atrovent HFA) escitalopram oxalate 10 mg tablet 10 mg PO DAILY 09/05/23 02/24/24 Previous Rx's Medication Instructions Recorded docusate sodium 100 mg capsule 100 mg PO BID #120 caps 08/11/22 (Colace) Allergies Allergy/AdvReac Type Severity Reaction Status Date / Time azithromycin Allergy Severe Anaphylaxsi Verified 02/24/24 16:48 s erythromycin base Allergy Severe Anaphylaxsi Verified 02/24/24 16:48 s trazodone Allergy Other (See Verified 02/24/24 16:48 Comment) hydroxyzine AdvReac Agitation Unverified 02/24/24 16:48 sulfa Allergy Severe Anaphylaxsi Uncoded 02/24/24 16:48 s Seafood Allergy Intermediate Hives Uncoded 02/24/24 16:48 General Stated Complaint: Laceration KATH: 3 Exam Narrative Exam Narrative: 2 inch laceration noted to dorsal aspect of hand tendon, extensor visualized, no evidence of laceration explored, neurovascularly intact Course Vital Signs Vital signs: Vital Signs Temperature 36.7 C 02/24/24 16:45 Pulse 72 02/24/24 16:45 Respiratory Rate 15 02/24/24 16:45 Blood Pressure 132/63 02/24/24 16:45 Pulse Oximetry 97 02/24/24 16:45 Temperature 36.3 C L 02/24/24 17:45 Temperature Source Temporal Artery Scan 02/24/24 16:48 Pulse 77 02/24/24 17:45 Respiratory Rate 16 02/24/24 17:45 Respiratory Effort Normal, Non-Labored 02/24/24 16:50 Blood Pressure 119/75 02/24/24 17:45 Blood Pressure Position Sitting 02/24/24 16:48 Pulse Oximetry 99 02/24/24 17:45 Oxygen Delivery Method Room Air 02/24/24 16:48 Oxygen Flow Rate 0 02/24/24 16:48 Pain Level 0 02/24/24 17:45 Procedures Laceration Laceration 1: Site: hand Side (If applicable): right Size (cm): 2.5 Description: linear Amount of anesthesia used (mL): 3 Pre-repair: wound explored, irrigated extensively, extensive debridement and wound margins revised Skin layer closed with: nylon Size (cm): 4-0 Number of sutures: 3 Technique: horizontal mattress Subcutaneous layer closed with: vicryl Size: 4-0 Number of sutures: 6 Technique: running Muscle layer closed with: vicryl Size: 4-0 Number of sutures: 1 Medical Decision Making 58-year-old male presenting with complex hand laceration, tetanus up-to-date and flexion and extension of hand intact 3 external sutures were placed which will need to be removed in 12 to 14 days, horizontal mattress sutures, risk of infection reviewed, no indication for antibiotics Motrin and Tylenol here in pain Return precautions reviewed and patient expressed understanding Quality:SDOH Health Related Social Needs: No Data to Display PFSH All Active Problems (Updated 02/24/24 @ 17:27 by OLIVE Waggoner) Laceration of hand, left (Acute) COPD (chronic obstructive pulmonary disease) (Chronic) Status post myocardial infarction (Acute) Medical History (Updated 02/24/24 @ 17:27 by OLIVE Waggoner) Left inguinal hernia Emphysema/COPD Chronic pain Surgical History Inguinal hernia of left side without obstruction or gangrene (~08/2023) Social History Smoking/Tobacco Use Status: Former Tobacco Use Smoking risk assessment performed?: Yes Alcohol Intake: never Drug use: Daily Substance use type: crack/cocaine Details: per [facility]man (Per [facility] has been with them a few months presumed April 2023 last use), patient confirms Housing: other Additional Social history: [facility] inmate
== END 2024-02-24 17:55 | disposition home or self-care (01) ==
PROVIDERS: Emergency Provider Physician Assistant
DX: S61.411A Laceration without foreign body of right hand, initial encounter (principal); J44.9 Chronic obstructive pulmonary disease, unspecified; I25.2 Old myocardial infarction; F19.10 Other psychoactive substance abuse, uncomplicated; Z87.891 Personal history of nicotine dependence; X58.XXXA Exposure to other specified factors, initial encounter
CPT/HCPCS: 12041; 99283